=== PATIENT | female | born 1940 | race Caucasian/White ===

== ENCOUNTER 2021-09-04 11:42 | Emergency (ER) | payer MEDICARE, SELFPAY ==
[2021-09-04] VITALS (7 sets, daily range): BP systolic 143–190; BP diastolic 37–70; PULSE 48–57; RESP 16–18; TEMP 36.7–36.9; O2SAT 95–96; BMI 49.6
--- NOTE | ~2021-09-04 | XR_ITS ---
EXAMINATION: XR RIGHT FOOT XR RIGHT ANKLE XR RIGHT KNEE CLINICAL INFORMATION: Pain post fall. COMPARISON: Right knee x-ray October 2018. TECHNIQUE: 4 views of the right knee, 3 views of the right foot and 3 views of the right ankle. FINDINGS: RIGHT KNEE: There is a 3 component right knee replacement. No fracture or dislocation is seen. No x-ray evidence of loosening is seen. There is no joint effusion. RIGHT ANKLE: There is a fracture of the fifth metatarsal bone. No other fracture is seen. The ankle mortise is normal. Soft tissues are normal. RIGHT FOOT: There are fractures of the distal shafts of the third, fourth and fifth metatarsal bones. There is arthritis at the first MTT joint and metatarsal tarsal joints. There is a plantar calcaneal spur. There is soft tissue swelling adjacent to the fractures. XR/XR knee RT 3V IMPRESSION: Right foot: Fractures of the distal shafts of the third, fourth, and fifth metatarsal bones. , Right ankle: No fracture seen. Right knee: Right knee replacement. No fracture or dislocation seen.
--- NOTE | ~2021-09-04 | XR_ITS ---
EXAMINATION: XR RIGHT FOOT XR RIGHT ANKLE XR RIGHT KNEE CLINICAL INFORMATION: Pain post fall. COMPARISON: Right knee x-ray October 2018. TECHNIQUE: 4 views of the right knee, 3 views of the right foot and 3 views of the right ankle. FINDINGS: RIGHT KNEE: There is a 3 component right knee replacement. No fracture or dislocation is seen. No x-ray evidence of loosening is seen. There is no joint effusion. RIGHT ANKLE: There is a fracture of the fifth metatarsal bone. No other fracture is seen. The ankle mortise is normal. Soft tissues are normal. RIGHT FOOT: There are fractures of the distal shafts of the third, fourth and fifth metatarsal bones. There is arthritis at the first MTT joint and metatarsal tarsal joints. There is a plantar calcaneal spur. There is soft tissue swelling adjacent to the fractures. XR/XR foot RT 2V IMPRESSION: Right foot: Fractures of the distal shafts of the third, fourth, and fifth metatarsal bones. , Right ankle: No fracture seen. Right knee: Right knee replacement. No fracture or dislocation seen.
--- NOTE | ~2021-09-04 | XR_ITS ---
EXAMINATION: XR RIGHT FOOT XR RIGHT ANKLE XR RIGHT KNEE CLINICAL INFORMATION: Pain post fall. COMPARISON: Right knee x-ray October 2018. TECHNIQUE: 4 views of the right knee, 3 views of the right foot and 3 views of the right ankle. FINDINGS: RIGHT KNEE: There is a 3 component right knee replacement. No fracture or dislocation is seen. No x-ray evidence of loosening is seen. There is no joint effusion. RIGHT ANKLE: There is a fracture of the fifth metatarsal bone. No other fracture is seen. The ankle mortise is normal. Soft tissues are normal. RIGHT FOOT: There are fractures of the distal shafts of the third, fourth and fifth metatarsal bones. There is arthritis at the first MTT joint and metatarsal tarsal joints. There is a plantar calcaneal spur. There is soft tissue swelling adjacent to the fractures. XR/XR ankle RT 2V IMPRESSION: Right foot: Fractures of the distal shafts of the third, fourth, and fifth metatarsal bones. , Right ankle: No fracture seen. Right knee: Right knee replacement. No fracture or dislocation seen.
--- NOTE | 2021-09-04 11:52 | ED.FALL ---
HPI - Fall General Chief Complaint: Fall <Ashley Ni NP - Last Filed: 09/04/21 17:43> Stated Complaint: R FOOT/ANKLE PAIN,UNABLE TO BEAR WT,KNEE GAVE OUT <Ashley Ni NP - Last Filed: 09/04/21 17:43> Time Seen by Provider: 09/04/21 11:46 <Ashley Ni NP - Last Filed: 09/04/21 17:43> Source: patient <Ashley Ni NP - Last Filed: 09/04/21 17:43> Mode of arrival: EMS <Ashley Ni NP - Last Filed: 09/04/21 17:43> Limitations: no limitations <LIOR Cooley Last Filed: 09/04/21 17:43> History of Present Illness HPI Narrative: 81-year-old female pmhx significant for osteoarthritis, and frequent falls presents to the ED with pain to the right ankle, foot and knee s/p fall that occured about an hour ago. She states she was getting into the shower, and she felt like her right knee gave out on her, which caused her to fall and rolled her ankle. She states that she did not hit her head, did not lose consciousness and she is not having changes in vision. She states when she fell she grabbed the hand rail and lowered herself to the ground. She states that she is having pain that is constant, but she cannot pinpoint just one spot that hurts. She denies preceding dizziness, chest pain, SOB, fevers, chills, nausea, vomiting. She is not on blood thinners. Past surgical history is significant for a complete left knee replacement. <Ashley Ni NP - Last Filed: 09/04/21 17:43> MD complaint: fall <Ashley Ni NP - Last Filed: 09/04/21 17:43> Onset (ago): hour(s) (1) <LIOR Cooley Last Filed: 09/04/21 17:43> Fall from: standing <Ashley Ni NP - Last Filed: 09/04/21 17:43> Fall witnessed: no <Ashley Ni NP - Last Filed: 09/04/21 17:43> Place fall occurred: home <Ashley Ni NP - Last Filed: 09/04/21 17:43> Loss of consciousness: none <Ashley Ni NP - Last Filed: 09/04/21 17:43> Prolonged down time: no <Ashley Ni NP - Last Filed: 09/04/21 17:43> Symptoms prior to fall: none <Ashley Ni NP - Last Filed: 09/04/21 17:43> Context: other (right knee gave out) <Ashley Ni NP - Last Filed: 09/04/21 17:43> Location of injury: other (R. knee, ankle, foot.) <Ashley Ni NP - Last Filed: 09/04/21 17:43> Related Data Home Medications: Home Medications Medication Instructions Recorded Confirmed albuterol sulfate 90 mcg/actuation 2 puff INHALATION Q6H PRN 09/04/21 09/04/21 aerosol inhaler (ProAir HFA) atenolol 50 mg tablet 1 tab PO DAILY 09/04/21 09/04/21 azelastine 137 mcg (0.1 %) nasal 1 spray INTRANASAL BID 09/04/21 09/04/21 spray aerosol budesonide-formoterol HFA 160 2 puff PO BID 09/04/21 09/04/21 mcg-4.5 mcg/actuation aerosol inhaler (Symbicort) cetirizine 10 mg tablet 1 tab PO DAILY 09/04/21 09/04/21 cholecalciferol (vitamin D3) 25 25 mcg PO DAILY 09/04/21 09/04/21 mcg (1,000 unit) capsule (Vitamin D3) fluticasone propionate 50 2 spray INTRANASAL DAILY 09/04/21 09/04/21 mcg/actuation nasal spray,suspension losartan 50 mg tablet 1 tab PO BEDTIME 09/04/21 09/04/21 montelukast 10 mg tablet 1 tab PO DAILY 09/04/21 09/04/21 omeprazole 20 mg capsule,delayed 1 cap PO DAILY@0630 09/04/21 09/04/21 release propafenone 225 mg tablet 1 tab PO TID 09/04/21 09/04/21 simvastatin 40 mg tablet 1 tab PO BEDTIME 09/04/21 09/04/21 <Ashley Ni NP - Last Filed: 09/04/21 17:43> Allergies/Adverse Reactions: Allergies Allergy/AdvReac Type Severity Reaction Status Date / Time atorvastatin [From LIPITOR] AdvReac Severe MUSCLE PAIN Verified 09/04/21 18:57 ibuprofen [From MOTRIN] AdvReac Severe CHEST PAIN Verified 09/04/21 18:57 Motrin Allergy Unknown Chest Pain Uncoded 09/04/21 18:57 <Ashley Ni NP - Last Filed: 09/04/21 17:43> Review of Systems Review of Systems: Yes all other systems are reviewed and are negative <Ashley Ni NP - Last Filed: 09/04/21 17:43> Constitutional: Constitutional: Reports no additional constitutional complaints, Denies body ache(s), Denies chills, Denies fever(s), Denies headache(s) and Denies weakness <Ashley Ni NP - Last Filed: 09/04/21 17:43> Eyes: Eyes: Reports no additional eye complaints and Denies change in vision <Ashley Ni NP - Last Filed: 09/04/21 17:43> ENT: Reports system reviewed and no additional complaints, except as documented, Denies dizziness, Denies headache(s), Denies nasal congestion, Denies nasal discharge and Denies neck pain <Ashley Ni NP - Last Filed: 09/04/21 17:43> Cardiovascular: Cardiovascular: Reports no additional cardiovascular complaints, Denies chest pain, Denies leg edema and Denies dyspnea <Ashley Ni NP - Last Filed: 09/04/21 17:43> Respiratory: Respiratory: Reports no additional respiratory complaints, Denies cough and Denies dyspnea <Ashley Ni NP - Last Filed: 09/04/21 17:43> Gastrointestinal: Gastrointestinal: Reports no additional gastrointestinal complaints, Denies abdominal pain, Denies diarrhea, Denies nausea and Denies vomiting <Ashley Ni NP - Last Filed: 09/04/21 17:43> Genitourinary: Genitourinary: Reports no additional female genitourinary complaints and Denies urinary incontinence <Ashley Ni NP - Last Filed: 09/04/21 17:43> Musculoskeletal: Musculoskeletal: Reports no additional musculoskeletal complaints, Denies back pain, Reports arthralgias (R. ankle, foot, knee), Reports joint swelling (R. ankle ), Denies neck pain, Denies numbness and Denies tingling <Ashley Ni NP - Last Filed: 09/04/21 17:43> Integumentary/Breasts: Skin/Breast: Reports system reviewed and no additional complaints, except as docu and Denies rash <Ashley Ni NP - Last Filed: 09/04/21 17:43> Neurologic: Reports system reviewed and no additional complaints, except as documented, Denies Abnormal speech present, Denies dizziness, Denies headache(s), Denies numbness, Denies tingling and Denies weakness <Ashley Ni NP - Last Filed: 09/04/21 17:43> PMFSH Past Medical History Attestation statement: The following information was validated with the patient. <Ashley Ni NP - Last Filed: 09/04/21 17:43> Source: old records reviewed and nursing notes reviewed <Ashley Ni NP - Last Filed: 09/04/21 17:43> Social History Social History: Social History Alcohol intake: current Alcohol intake frequency: holidays/special occasions only Patient Tobacco Use Status: Never used Tobacco Use of substances other than those prescribed or required for medical reasons: No Advance Directives: Yes Advance Directives Information Provided: Yes Advance Directives on File: No <Ashley Ni NP - Last Filed: 09/04/21 17:43> Physical Exam Vital Signs: Vital Signs: Last Vital Signs Temp 98.2 F 09/05/21 05:36 Pulse 55 09/05/21 05:36 Resp 16 09/05/21 05:36 BP 146/72 H 09/05/21 08:40 Pulse Ox 95 09/05/21 05:36 Body Mass Index 49.6 <Ashley Ni NP - Last Filed: 09/04/21 17:43> Vital Signs: Last Vital Signs Temp 98.2 F 09/05/21 05:36 Pulse 55 09/05/21 05:36 Resp 16 09/05/21 05:36 BP 146/72 H 09/05/21 08:40 Pulse Ox 95 09/05/21 05:36 Body Mass Index 49.6 <ROBBI Phillips - Last Filed: 09/05/21 13:06> Const: General: cooperative, healthy appearing, comfortable and no acute distress <Ashley Ni NP - Last Filed: 09/04/21 17:43> Orientation/consciousness: patient oriented x3 <Ashley Ni NP - Last Filed: 09/04/21 17:43> Limitations: no limitations <Ashley Ni NP - Last Filed: 09/04/21 17:43> HENMT: Head: Yes normal to inspection <Ashley Ni NP - Last Filed: 09/04/21 17:43> Ears: hearing grossly normal bilaterally <Ashley Ni NP - Last Filed: 09/04/21 17:43> General nose exam: Normal external nose present <Ashley Ni NP - Last Filed: 09/04/21 17:43> Face and sinus: Yes normal facial exam <Ashley Ni NP - Last Filed: 09/04/21 17:43> Mouth: Normal oral and palatal mucosa present <Ashley Ni NP - Last Filed: 09/04/21 17:43> Throat: Yes posterior oropharynx normal <Ashley Ni NP - Last Filed: 09/04/21 17:43> Eyes: General: appearance normal, both eyes and all related structures <Ashley Ni NP - Last Filed: 09/04/21 17:43> Pupils: Equal, round and reactive pupils present <Ashley Ni NP - Last Filed: 09/04/21 17:43> Neck: Neck: Yes normal visual inspection <Ashley Ni NP - Last Filed: 09/04/21 17:43> Chest: Chest palpation & inspection: normal inspection of the chest <Ashley Ni NP - Last Filed: 09/04/21 17:43> Resp: Effort & Inspection: normal respiratory effort <Ashley Ni NP - Last Filed: 09/04/21 17:43> Auscultation: clear to auscultation bilaterally <Ashley Ni NP - Last Filed: 09/04/21 17:43> Cardio: Rate: regular rate <Ashley Ni NP - Last Filed: 09/04/21 17:43> Rhythm: regular rhythm <Ashley Ni NP - Last Filed: 09/04/21 17:43> Peripheral pulses: Peripheral pulses 2+ throughout <Ashley Ni NP - Last Filed: 09/04/21 17:43> GI: Inspection: Yes normal to inspection <Ashley Ni NP - Last Filed: 09/04/21 17:43> Palpation (GI): Soft to palpation and nontender <Ashley Ni NP - Last Filed: 09/04/21 17:43> Auscultation: normal bowel sounds <Ashley Ni NP - Last Filed: 09/04/21 17:43> Back/Spine/Pelvis: Thoracic/Lumbar Spine: thoracic and lumbar spine normal to inspection <Ashley Ni NP - Last Filed: 09/04/21 17:43> Skin: Other: Old bruises are noted to the right medial thigh on the left. They appear old, patient states these were from a fall week ago. <Ashley Ni NP - Last Filed: 09/04/21 17:43> General skin exam: no rashes or lesions noted <Ashley Ni NP - Last Filed: 09/04/21 17:43> Neuro: General: patient oriented x3, no focal motor deficits and normal sensation to monofilament <Ashley Ni NP - Last Filed: 09/04/21 17:43> Cranial nerves: Yes Equal, round and reactive pupils present <Ashley Ni NP - Last Filed: 09/04/21 17:43> Cognition (Neuro): normal cognition <Ashley Ni NP - Last Filed: 09/04/21 17:43> Speech: No Abnormal speech present <Ashley Ni NP - Last Filed: 09/04/21 17:43> Gait exam (Neuro): Normal gait present <Ashley Ni NP - Last Filed: 09/04/21 17:43> Motor exam (neuro): 5/5 motor strength present throughout <Ashley Ni NP - Last Filed: 09/04/21 17:43> Extrem: General: No normal to inspection (Swelling noted over the right lateral malleolus), Yes full ROM (Painful), Yes capillary refill normal, No no joint enlargement, Yes no pedal edema, Yes no calf tenderness, No cyanosis and Yes edema (Two right ankle) <Ashley Ni NP - Last Filed: 09/04/21 17:43> Right upper extremity: normal to inspection <Ashley Ni NP - Last Filed: 09/04/21 17:43> Left upper extremity: normal to inspection <Ashley Ni NP - Last Filed: 09/04/21 17:43> Course Course Course Narrative: 81 F pmhx significant for osteoarthrits, and frequent falls presents to the ED with 1 hour of right ankle, foot and knee pain s/p fall secondary to her right knee giving out. She states her knee frequently gives out causing her to fall. She lowered herself to the ground. Did not hit her head no LOC, no vision changes. She is not on blood thinners. Spoke to family and patient about possible short term rehab, offered a case management/PT consult due to recurrent falls however family and patient declned, they said if they change their minds they will let us know. 1500- X-ray shows Fractures of the distal shafts of the third, fourth, and fifth metatarsal bones Spoke to family member at bedside, daughter who states they now want case management and PT. Orders have been put in a posterior short leg splint has been applied. Patient has good capillary refill, and sensation is intact after applying splint. Patient should try to not bear weight onto right foot, toe tap permitted. She should follow up with ortho in one week. <Ashley Ni NP - Last Filed: 09/04/21 17:43> Reevaluation(s) Reevaluation #1: 1640- At this time patient has been placed in physician observation. Need more time for case management and PT consult due to frequent falls at home. At this time patient is comfortable laying in bed she has a posterior short leg splint on and has good capillary refill and sensation. Vital signs are stable. Will continue to monitor. Pending disposition <Ashley Ni NP - Last Filed: 09/04/21 17:43> Reevaluation #2: 8am - physician observation continued. PT evaluated the patient and recommended short term rehab. Patient has bed offers per case consultant. Hopeful for placement today. VS are stable and her pain is minimal. Awake and alert eating breakfast this morning. only complaint is her chronic low back pain which improves with tylenol. Will continue to monitor while patient is pending. <ROBBI Phillips - Last Filed: 09/05/21 13:06> Reevaluation #3: 1:20 pm - Physician observation discontinued at this time. Patient is to be discharged to [facility] for acute rehab. No need to discharge with opiates as she has not required any while in the ER. Family at the bedside who agrees with plan for discharge to [facility]. Dispo is to short-term rehab. <ROBBI Phillips - Last Filed: 09/05/21 13:06> Procedures Orthopedic Splinting/Casting Injury #1: Side: right <Ashley Ni NP - Last Filed: 09/04/21 17:43> Lower Extremity Injury Location: foot <Ashley Ni NP - Last Filed: 09/04/21 17:43> Lower Extremity Immobilizer: posterior splint <Ashley Ni NP - Last Filed: 09/04/21 17:43> MDM - Fall MDM Narrative Medical decision making narrative: Based on patient's history, and physical exam is CT of the head is not warranted at this time. Patient denies LOC, she is alert and oriented x3, she did not hit her head. Unlikely that this is a bleed. She is also not on blood thinners. An x-ray of the right foot, ankle and knee of been ordered. <Ashley Ni NP - Last Filed: 09/04/21 17:43> Medical Records Attestation: I reviewed the patient's medical records. <Ashley Ni NP - Last Filed: 09/04/21 17:43> Lab Data Attestation: I reviewed the patient's lab results. <Ashley Ni NP - Last Filed: 09/04/21 17:43> Labs: Lab Results 09/04/21 Range/Units 16:39 COVID-19 ([facility]) Negative (Negative) COVID-19 Clin Com See Note <Ashley Ni NP - Last Filed: 09/04/21 17:43> Lab Results 09/04/21 Range/Units 16:39 COVID-19 ([facility]) Negative (Negative) COVID-19 Clin Com See Note <ROBBI Phillips - Last Filed: 09/05/21 13:06> Imaging Data Right ankle/foot/knee: Attestation: I personally reviewed and interpreted this imaging study as follows: <Ashley Ni NP - Last Filed: 09/04/21 17:43> Radiologist's impression: FINDINGS: RIGHT KNEE: There is a 3 component right knee replacement. No fracture or dislocation is seen. No x-ray evidence of loosening is seen. There is no joint effusion. RIGHT ANKLE: There is a fracture of the fifth metatarsal bone. No other fracture is seen. The ankle mortise is normal. Soft tissues are normal. RIGHT FOOT: There are fractures of the distal shafts of the third, fourth and fifth metatarsal bones. There is arthritis at the first MTT joint and metatarsal tarsal joints. There is a plantar calcaneal spur. There is soft tissue swelling adjacent to the fractures. XR/XR ankle RT 2V IMPRESSION: Right foot: Fractures of the distal shafts of the third, fourth, and fifth metatarsal bones. , Right ankle: No fracture seen. ? Right knee: Right knee replacement. No fracture or dislocation seen. <Ashley Ni NP - Last Filed: 09/04/21 17:43> Discharge Plan Discharge Clinical Impression: Foot fracture, right Qualifiers: Encounter type: initial encounter Fracture type: closed Qualified Code(s): S92.901A - Unspecified fracture of right foot, initial encounter for closed fracture <Ashley iN NP - Last Filed: 09/04/21 17:43> Patient Disposition: er [facility] <Ashley Ni NP - Last Filed: 09/04/21 17:43> Prescriptions: No Action losartan 50 mg tablet 1 tab PO BEDTIME RF: 0 cetirizine 10 mg tablet 1 tab PO DAILY RF: 0 simvastatin 40 mg tablet 1 tab PO BEDTIME RF: 0 propafenone 225 mg tablet 1 tab PO TID RF: 0 omeprazole 20 mg capsule,delayed release(DR/EC) 1 cap PO DAILY@0630 RF: 0 azelastine 137 mcg (0.1 %) aerosol,spray 1 spray intranasal BID RF: 0 montelukast 10 mg tablet 1 tab PO DAILY RF: 0 albuterol sulfate [ProAir HFA] 90 mcg/actuation Hfa Aerosol Inhaler 2 puff INHALATION Q6H PRN (Reason: Shortness Of Breath) RF: 0 fluticasone propionate [Flonase] 50 mcg/actuation [place],Suspension 2 spray INTRANASAL DAILY RF: 0 atenolol 50 mg tablet 1 tab PO DAILY RF: 0 cholecalciferol (vitamin D3) [Vitamin D3] 25 mcg (1,000 unit) Capsule 25 mcg PO DAILY RF: 0 budesonide-formoterol [Symbicort] 160-4.5 mcg/actuation HFA aerosol inhaler 2 puff PO BID RF: 0 <Ashley Ni NP - Last Filed: 09/04/21 17:43>
--- NOTE | 2021-09-04 16:50 | PC.NURSE ---
pt helped onto and off of bedpan by this RN. 300 ml of urine.
--- NOTE | 2021-09-04 17:05 | PHA.MEDREC ---
Pharmacy Consult ? Medication Reconciliation Pharmacy has completed the medication reconciliation. Spoke with patient and PHARMACY BILLING ADJUDICATOR in ED.
[2021-09-04 17:18] LABS: COVID-19 Test Negative (Negative)
--- NOTE | 2021-09-04 17:56 | MHC.CM.ED ---
CM met with patient and daughter. Pt has knee pain and fx foot. PT recommends STR. Pt and daughter agreeable. Pt lives with and daughter in a moblie home. Pt uses a walker and has no services. Pt is independent with ADL's. Daughter provides transportation, groceries and meal preparation. HCP/daughter Ping Christine ([phone]). Copy of HCP obtained and uploaded into [employer] and [email or web address]. PCP is Chandrakant Ying. Pt and daughter given [facility] for both acute rehab and local STR. Referrals placed at [facility] for acute rehab and [facility] in [place] and [facility] at pt request. Contact card given. CM to follow for d/c needs.
--- NOTE | 2021-09-04 18:58 | PC.NURSE ---
Pt aaox4, resting on stretcher in NAD, breathing with ease on RA. Pt's VS, BP not obtained, pt refused it at this time. Pt endorses a little bit, about a 5 of pain in R foot. Pt offers no additional complaints. Pt aware and agreeable to plan for PT/CM. Pt stretcher in low locked position, rails raised, call rock within reach. Pt instructed to use call rock before getting out of bed for all needs. Pt expresses understanding. Red fall star sign posted outside of room, pt with red wrist band.
[2021-09-04] MEDS: Losartan Potassium 50 MG TABLET PO (20:52)
[2021-09-04] MEDS: Acetaminophen 325 MG TABLET 650 MG PO (20:52)
[2021-09-04] MEDS: Azelastine HCl Nasal 137 MCG/Spray 30 ML 1 SPRAY NOSTRIL-B (21:27)
--- NOTE | 2021-09-05 01:43 | PC.NURSE ---
Pt assisted off of bedpan, boosted in bed to position of comfort. Bed in low locked position, rails raised, call rock within reach, bed alarm active and audible.
[2021-09-05 05:36] VITALS: BP 146/72; PULSE 55; RESP 16; TEMP 36.8; O2SAT 95
[2021-09-05] MEDS: Omeprazole 20 MG CAPSULE.DR PO (05:40)
--- NOTE | 2021-09-05 07:25 | PC.NURSE ---
report taken from tonya owusu pt here for case mgmt s/p fall, alert, calm and cooperative on first contact, nad. awaiting breakfast. 04/10 headache. wctm for dc needs.
[2021-09-05] MEDS: Acetaminophen 325 MG TABLET 650 MG PO (08:03)
[2021-09-05 08:40] VITALS: BP 146/72
[2021-09-05] MEDS: atenoloL 50 MG TABLET PO (08:40)
[2021-09-05] MEDS: Azelastine HCl Nasal 137 MCG/Spray 30 ML 1 SPRAY NOSTRIL-B (08:40)
[2021-09-05] MEDS: Cholecalciferol (Vitamin D3) 25 MCG TABLET PO (08:40)
[2021-09-05] MEDS: Loratadine 10 MG TABLET PO (08:40)
[2021-09-05] MEDS: Montelukast Sodium 10 MG TABLET PO (08:40)
[2021-09-05] MEDS: Ondansetron ODT 4 MG TAB.RAPDIS TRANSLINGU (11:39)
--- NOTE | 2021-09-05 11:42 | PC.NURSE ---
pt vomiting all of a sudden, given zofran po. will assess for effect.
--- NOTE | 2021-09-05 12:01 | MHC.CM.PN ---
PATIENT TO TRANSFER TO [facility] FOR [facility]. PATIENT, DAUGHTER (IN ROOM), RN, AND UNIT AWARE OF PLAN.
== END 2021-09-05 14:38 | disposition skilled nursing facility (03) ==
PROVIDERS: Nurse Practitioner Family; Emergency Provider Emergency Medicine
DX: S92.901A Unspecified fracture of right foot, initial encounter for closed fracture (principal); M79.671 Pain in right foot; W01.0XXA Fall on same level from slipping, tripping and stumbling without subsequent striking against object, initial encounter; Y93.9 Activity, unspecified; Y92.9 Unspecified place or not applicable; Y99.9 Unspecified external cause status; Z20.822 Contact with and (suspected) exposure to COVID-19; Z79.899 Other long term (current) drug therapy
CPT/HCPCS: 29505; 36415; 73562; 73600; 73620; 87635; 97162; 99285

== ENCOUNTER 2021-09-12 07:09 | Outpatient (REF) | payer MEDICARE, SELFPAY ==
--- NOTE | ~2021-09-12 | XR_ITS ---
EXAMINATION: XR FOOT, RIGHT CLINICAL INFORMATION: Right foot pain. COMPARISON: Most recent right foot radiographs dated 09/04/2021. TECHNIQUE: AP, lateral, and oblique views of the right foot. FINDINGS: Mildly displaced fractures through the 3rd, 4th, and 5th metatarsals in unchanged anatomic alignment. No dislocation. Severe joint space narrowing with bony remodeling and marginal osteophytes at the tarsometatarsal joints. No osseous erosion. Tiny plantar calcaneal spur. XR/XR foot RT min 3V IMPRESSION: Distal 3rd, 4th, and 5th metatarsal fractures in unchanged anatomic alignment.
== END 2021-09-12 07:10 | disposition home or self-care (01) ==
LOC: HO.HOSX 07:09
PROVIDERS: Visit Provider Physician Assistant
DX: S92.331D Displaced fracture of third metatarsal bone, right foot, subsequent encounter for fracture with routine healing (principal); S92.341D Displaced fracture of fourth metatarsal bone, right foot, subsequent encounter for fracture with routine healing; S92.351D Displaced fracture of fifth metatarsal bone, right foot, subsequent encounter for fracture with routine healing
CPT/HCPCS: 73630; 99202

== ENCOUNTER 2021-10-10 07:23 | Outpatient (REF) | payer MEDICARE, SELFPAY ==
--- NOTE | ~2021-10-10 | XR_ITS ---
EXAMINATION: XR FOOT, RIGHT CLINICAL INFORMATION: Pain of right foot COMPARISON: PET 2020 and 09/12/2021 TECHNIQUE: 3 views of the right foot. FINDINGS: Bones appear to be diffusely osteoporotic. Again noted is the extensive osteoarthritis along the tarsometatarsal joints. There is callus formation around the healing fracture of the distal metadiaphysis of the third metatarsal. The third metatarsal head is laterally displaced by approximately 0.3 cm. There is healing of the nondisplaced fracture of the fourth metatarsal neck. Also, there is progressive healing of the mildly displaced fracture of the distal metadiaphysis of the fifth metatarsal. No new fractures. There is a small plantar calcaneal enthesophyte. Mild osteoarthritis noted at the calcaneocuboid joint. XR/XR foot RT min 3V IMPRESSION: * There is progressive healing of metatarsal fractures. * Severe osteoarthritis of the tarsometatarsal joints.
== END 2021-10-10 07:24 | disposition home or self-care (01) ==
LOC: HO.HOSX 07:23
PROVIDERS: Visit Provider Physician Assistant
DX: S92.351A Displaced fracture of fifth metatarsal bone, right foot, initial encounter for closed fracture (principal); S92.341A Displaced fracture of fourth metatarsal bone, right foot, initial encounter for closed fracture; S92.331A Displaced fracture of third metatarsal bone, right foot, initial encounter for closed fracture
CPT/HCPCS: 73630; 99212

== ENCOUNTER 2021-11-07 07:15 | Outpatient (REF) | payer MEDICARE, SELFPAY ==
--- NOTE | ~2021-11-07 | XR_ITS ---
EXAMINATION: XR FOOT, RIGHT CLINICAL INFORMATION: Pain COMPARISON: 10/10/2021 TECHNIQUE: AP, lateral, and oblique views of the right foot. FINDINGS: There are healing fractures of the third, fourth, and fifth metatarsals with bony callus formation present. Fracture line at the third metatarsal fracture is still evident. Degenerative changes at the first metatarsophalangeal joint. Severe degenerative change along the tarsometatarsal joints. Plantar heel spur. XR/XR foot RT min 3V IMPRESSION: Healing fractures of the third, fourth, and fifth metatarsals Advanced degenerative changes along the tarsometatarsal joints.
== END 2021-11-07 07:16 | disposition home or self-care (01) ==
LOC: HO.HOSX 07:15
PROVIDERS: Visit Provider Physician Assistant
DX: S92.331D Displaced fracture of third metatarsal bone, right foot, subsequent encounter for fracture with routine healing (principal); S92.341D Displaced fracture of fourth metatarsal bone, right foot, subsequent encounter for fracture with routine healing; S92.351D Displaced fracture of fifth metatarsal bone, right foot, subsequent encounter for fracture with routine healing
CPT/HCPCS: 73630; 99212

== ENCOUNTER 2023-08-29 11:22 | Emergency (ER) | payer MEDICARE, SELFPAY ==
--- NOTE | ~2023-08-29 | XR_ITS ---
EXAMINATION: XR KNEE, RIGHT CLINICAL INFORMATION: Right knee pain after fall with inability to ambulate COMPARISON: None available. TECHNIQUE: Four views of the right knee. FINDINGS: A knee joint prosthesis is present. Components appear intact. There is an unusually large spacer present between the femoral and tibial components with a gap of about 2.8 cm. A joint effusion is present with some probable intra-articular osseous bodies. No fractures or dislocations. XR/XR knee RT 4V IMPRESSION: 1. No evidence of an acute osseous injury. 2. Intact knee joint prosthetic components. 3. Joint effusion with probable intra-articular osseous bodies.
--- NOTE | ~2023-08-29 | US_ITS ---
EXAMINATION: US VENOUS ULTRASOUND WITH DOPPLER LOWER EXTREMITY, RIGHT CLINICAL INFORMATION: Right lower extremity edema and pain COMPARISON: None available. TECHNIQUE: Ultrasound of the deep veins is performed from the hip to the calf with compression sonography and color and pulse Doppler assessment. Spectral analysis with color-flow imaging is performed. FINDINGS: There is normal venous compression and respiratory variation and augmented flow. The visualized common femoral vein, superficial femoral vein, profunda femoral vein, popliteal vein, and the trifurcation region shows no evidence of deep venous thrombosis. Left common femoral vein appears normal. There is a 4.7 x 1.8 x 2.7 cm Hanson cyst present. If the patient's symptoms persist, followup ultrasound in 5 days 7 days might be of value to exclude proximal propagation from a non-visualized calf vein. US/US venous duplex LE RT IMPRESSION: No DVT demonstrated in the right lower extremity.
[2023-08-29 11:31] VITALS: BP 131/50; PULSE 71; RESP 18; TEMP 36.9; O2SAT 97; BMI 52.8
[2023-08-29 11:42] VITALS: BP 174/91; PULSE 75; O2SAT 96
--- NOTE | 2023-08-29 11:48 | ED_ITS ---
HPI - General Adult General Chief complaint: Extremity Injury, Lower Stated complaint: R KNEE PAIN W/MOVEMENT PER EMS Time Seen by Provider: 08/29/23 11:29 Source: patient and family (daughter) Mode of arrival: EMS Limitations: no limitations History of Present Illness HPI narrative: 83 y o female presenting for evaluation of R leg pain. Patient had a witnessed fall into a chair last week in which she states her walker hit her leg during the fall, has been c/o knee pain since but able to ambulate on it. Has noticed bruising to the lateral aspect of the leg just below and above the knee as well as bruising to the popliteal fossa and along the posterior upper calf. She reports that this morning she is now unable to ambulate or bend the knee, stating it feels frozen with worsening pain, 8/10 with movement and 3/10 pain with rest. No thinners, no hx of DVT. No numbness or tingling. Denies chest pain, shortness of breath, palpitations, dizziness, abdominal pain, nausea, vomiting and diarrhea. Of note, patient states she is sedentary most of the day in a chair. Related Data Home Medications Medication Instructions Recorded Confirmed albuterol sulfate 90 mcg/actuation 2 puff inhalation Q6H PRN 09/04/21 09/04/21 aerosol inhaler (ProAir HFA) Shortness Of Breath atenolol 50 mg tablet 1 tab PO DAILY 09/04/21 09/04/21 azelastine 137 mcg (0.1 %) nasal 1 spray intranasal BID 09/04/21 09/04/21 spray aerosol budesonide-formoterol HFA 160 2 puff PO BID 09/04/21 09/04/21 mcg-4.5 mcg/actuation aerosol inhaler (Symbicort) cetirizine 10 mg tablet 1 tab PO DAILY 09/04/21 09/04/21 cholecalciferol (vitamin D3) 25 25 mcg PO DAILY 09/04/21 09/04/21 mcg (1,000 unit) capsule (Vitamin D3) fluticasone propionate 50 2 spray intranasal DAILY 09/04/21 09/04/21 mcg/actuation nasal spray,suspension losartan 50 mg tablet 1 tab PO BEDTIME 09/04/21 09/04/21 montelukast 10 mg tablet 1 tab PO DAILY 09/04/21 09/04/21 omeprazole 20 mg capsule,delayed 1 cap PO DAILY@0630 09/04/21 09/04/21 release propafenone 225 mg tablet 1 tab PO TID 09/04/21 09/04/21 simvastatin 40 mg tablet 1 tab PO BEDTIME 09/04/21 09/04/21 Allergies Allergy/AdvReac Type Severity Reaction Status Date / Time atorvastatin [From LIPITOR] AdvReac Severe MUSCLE PAIN Verified 11/07/21 11:30 ibuprofen [From MOTRIN] AdvReac Severe CHEST PAIN Verified 11/07/21 11:30 Motrin Allergy Unknown Chest Pain Uncoded 10/10/21 12:57 Review of Systems Review of Systems: Constitutional : No Weight loss, No Fever, No Chills, No Fatigue, No Malaise Cardiovascular : No Chest Pain, No SOB, No Dyspnea on Exertion, No Orthopnea, No Edema, No Palpitations Respiratory : No Cough, No Sputum, No Wheezing Gastrointestinal : No Nausea, No Vomiting, No Diarrhea, No Constipation, No abdominal Pain, No Hematochezia, No Melena Genitourinary : No Dysuria, No Urinary Frequency, No Hematuria Musculoskeletal : + joint pain, No Myalgias, No Joint Swelling Skin : No Skin Lesions, No rash, +bruising to the R leg Neuro : No Weakness, No Numbness, No Dizziness, No Headache Psych : No Anxiety/Panic, No Depression All other systems reviewed and are negative [facility] Past Medical History Surgical History History of total right knee replacement Social History Social History Alcohol intake: never Patient Tobacco Use Status: Never used Tobacco Smoked in Last 30 Days: No Use of substances other than those prescribed or required for medical reasons: No Advance Directives: Yes Advance Directives on File: Yes Advance Directives Date on File: 08/29/23 Current occupational status: retired Current occupation: rt handed Physical Exam ED Vital Signs: Vital Signs - 24 hr 08/29/23 11:31 Temperature 98.5 F Pulse Rate 71 Respiratory Rate 18 Blood Pressure 131/50 L Pulse Oximetry 97 Oxygen Delivery Method Room Air BMI result Body Mass Index 52.8 VSS Appearance: Alert.? Oriented X3.? No acute distress.? Head: Normocephalic, atraumatic, no step-offs or deformities Neck: Normal inspection.? Neck supple.? CVS: Normal heart rate and rhythm.? Pulses normal.? Respiratory: No respiratory distress.? Breath sounds normal.? Abdomen: Soft and nontender.? Skin: Skin warm and dry.? Normal skin color.? Normal skin turgor. +Ecchymosis to the R lateral leg just below and above the knee, also within the popliteal fossa and along the posterior upper calf. Extremities: No lower extremity edema.? 5/5 strength to bilateral upper extremities. LLE with full ROM and 5/5 strength. R hip flexion and knee flexion ROM limited secondary to pain. Full ROM of the ankles b/l. 5/5 dorsiflexion and plantar flexion. 2+ popliteal, DP, PT pulses b/l. Gross sensation in tact. R calf TTP. L calf no TTP Neuro: Oriented X 3.? No motor deficit.? No sensory deficit. CN 2-12 intact Course Reevaluation(s) Reevaluation #1: No DVT in the lower extremity right, patient did have to use the restroom, and had a very hard time ambulating, she was a to assist with a gait belt, was able to stand pivot however patient is usually ambulatory at home with walker. Here she is requiring a wheelchair. Patient and daughter do not feel comfortable with her going home, this will warrant evaluation by physical therapy and case management. X-ray pending however patient to be placed and to physician observation to allow more time to be evaluated by physical therapy and case management. Time observation was started patient common cooperative no acute distress will continue to monitor Time: 13:19 Reevaluation #2: Bodies. X-ray of right knee with joint effusion with intra-articular osseous bodies. Will give her an Adeel wrap. Patient to follow-up outpatient with orthopedics Time: 13:21 Medications Administered Discontinued Medications Generic Name Dose Route Start Last Admin Trade Name Freq PRN Reason Stop Dose Admin Acetaminophen 650 mg 08/29/23 11:52 08/29/23 11:57 Acetaminophen 325 Mg Tablet PO 08/29/23 11:53 650 mg ONCE ONE Administration Medical Decision Making Medical Decision Making MDM Narrative: 83 y o female presenting for evaluation of R knee and calf pain, fall 1 week ago now unable to ambulate on the R leg. PE significant for R hip flexion and knee flexion ROM limited secondary to pain. Full ROM of the ankles b/l. 5/5 dorsiflexion and plantar flexion. 2+ popliteal, DP, PT pulses b/l. Gross sensation in tact. R calf TTP. L calf no TTP. Possible hematoma vs sprain/strain vs dislocation vs fracture vs DVT. No acute threat to limb, neurovascularly in tact. I am not concerned for compartment syndrome, compartments are soft, limb is well perfused. No signs of necrosis. I am not concerned for a PE at this time, patient has no SOB, oxygenating well, lungs CTAB. Plan -- XR, Duplex US Differential Diagnosis Differential Diagnoses: The differential diagnosis associated with the presentation includes Possible hematoma vs sprain/strain vs dislocation vs fracture vs DVT. No acute threat to limb, neurovascularly in tact. I am not concerned for compartment syndrome, compartments are soft, limb is well perfused. No signs of necrosis. I am not concerned for a PE at this time, patient has no SOB, oxygenating well, lungs CTAB. Admission/Observation Consideration of admission/observation: Escalation of care including admission/observation considered Unlikely Independent Interpretation I performed an independent interpretation of an: Plain X-Ray and Ultrasound (US/US venous duplex LE RT IMPRESSION: No DVT demonstrated in the right lower extremity.) Radiology Impression Discussion of test interpretation with radiology: I have reviewed the radiologist's reading. Critical Care Time Critical Care Time Critical Care Time: No Discharge Plan Discharge Clinical Impression: Knee pain, right, Pain of right calf, Effusion of right knee Patient Disposition: Still a Patient Additional Instructions: Take your medications as prescribed. If you were prescribed antibiotics today, it is important that you take your medication to their entirety, do not skip any doses, do not finish them early. Follow-up with your primary care provider this week. Return to the emergency department with new or worsening symptoms. Such as fevers, chills, chest pain, shortness of breath, nausea, vomiting, dizziness, headache, vision changes, lethargy In case of emergency call 911 US/US venous duplex LE RT IMPRESSION: No DVT demonstrated in the right lower extremity. XR/XR knee RT 4V IMPRESSION: 1. No evidence of an acute osseous injury. 2. Intact knee joint prosthetic components. 3. Joint effusion with probable intra-articular osseous bodies. Prescriptions: No Action losartan 50 mg tablet 1 tab PO BEDTIME cetirizine 10 mg tablet 1 tab PO DAILY simvastatin 40 mg tablet 1 tab PO BEDTIME propafenone 225 mg tablet 1 tab PO TID omeprazole 20 mg capsule,delayed release(DR/EC) 1 cap PO DAILY@0630 azelastine 137 mcg (0.1 %) aerosol,spray 1 spray intranasal BID montelukast 10 mg tablet 1 tab PO DAILY albuterol sulfate [ProAir HFA] 90 mcg/actuation Hfa Aerosol Inhaler 2 puff INHALATION Q6H PRN (Reason: Shortness Of Breath) fluticasone propionate [Flonase] 50 mcg/actuation [place],Suspension 2 spray INTRANASAL DAILY atenolol 50 mg tablet 1 tab PO DAILY cholecalciferol (vitamin D3) [Vitamin D3] 25 mcg (1,000 unit) Capsule 25 mcg PO DAILY budesonide-formoterol [Symbicort] 160-4.5 mcg/actuation HFA aerosol inhaler 2 puff PO BID
[2023-08-29] MEDS: Acetaminophen 325 MG TABLET 650 MG PO ×2 (11:57→23:41)
--- NOTE | 2023-08-29 13:56 | PC.NURSE ---
report given to Nena Shirley RN pt to be transferred to ED Overflow 3
--- NOTE | 2023-08-29 13:59 | PC.NURSE ---
transportation contacted for transfer to overflow
[2023-08-29 14:00] VITALS: PULSE 59; RESP 16; TEMP 37; O2SAT 96
[2023-08-29 14:08] LABS: COVID-19 Test Negative (Negative); IDNOW Serial# BCCEAD1C
--- NOTE | 2023-08-29 17:08 | PHA.MEDREC ---
Pharmacy Consult ? Medication Reconciliation Pharmacy has completed the medication reconciliation.PHARMACY HAS REVIEWED MED REC DONE BY NURSING
--- NOTE | 2023-08-29 17:58 | PC.NURSE ---
Pt arrive from ED. Med rec done. Diet order placed. PT eval completed and rec STR.
[2023-08-29 21:04] VITALS: BP 147/71; PULSE 80; RESP 18; TEMP 36.9; O2SAT 97
[2023-08-29] MEDS: Losartan Potassium 50 MG TABLET PO (21:50)
[2023-08-30] MEDS: Omeprazole 20 MG CAPSULE.DR PO (06:28)
--- NOTE | 2023-08-30 07:07 | PC.NURSE ---
Assumed care of patient at this time.
[2023-08-30 08:00] VITALS: BP 162/72; PULSE 66; RESP 18; TEMP 36.3; O2SAT 94
[2023-08-30] MEDS: Furosemide 20 MG TABLET 60 MG PO (08:30)
[2023-08-30] MEDS: Cholecalciferol (Vitamin D3) 25 MCG TABLET PO (08:30)
[2023-08-30] MEDS: Montelukast Sodium 10 MG TABLET PO (08:30)
[2023-08-30] MEDS: atenoloL 25 MG TABLET PO (08:31)
[2023-08-30] MEDS: Loratadine 10 MG TABLET PO (08:31)
[2023-08-30 10:00] VITALS: BP 149/67; PULSE 57; RESP 18; TEMP 36.2; O2SAT 95
[2023-08-30 10:40] LABS: MANUAL DIFF FLAG NO
[2023-08-30 10:41] LABS: Basophils Percent Auto 0.2 % (0-2); Eosinophils Absolute Auto 0.2 X10*3/uL (0.0-0.4); Eosinophils Percent Auto 2.6 % (0-4); Hematocrit 30.7 % (37.0-47.0); Hemoglobin 9.9 g/dl (12.0-16.0); Imm Gran Abs Auto 0.03 X10*3/uL (0.00-0.03); Imm Gran Pct Auto 0.4 % (0.0-0.4); Lymphocytes Absolute Auto 1.8 X10*3/uL (1.2-4.9); Lymphocytes Percent Auto 21.3 % (20-40); Mean Corpuscular HGB Conc 32.2 g/dl (31.0-35.0); Mean Corpuscular Hemoglobin 28.2 pg (27.0-33.0); Mean Corpuscular Volume 87.5 fL (80.0-98.0); Mean Platelet Volume 9.9 fL (9.4-12.3); Monocytes Absolute Auto 0.7 X10*3/uL (0.1-1.2); Monocytes Percent Auto 8.9 % (2-11); Neutrophils Absolute Auto 5.5 x10*3/uL (2.0-8.3); Neutrophils Percent Auto 66.6 % (45-73); Platelet Count 295 X10*3/uL (160-400); Red Blood Count 3.51 X10*6/uL (4.20-5.50); Red Cell Distribution Width 14.3 % (11.0-16.0); White Blood Count 8.2 X10*3/uL (4.8-10.8)
[2023-08-30 11:00] LABS: Alanine Aminotransferase 8 U/L (0-31); Albumin Level 3.5 g/dL (3.5-5.0); Alkaline Phosphatase 79 U/L (39-117); Anion Gap 16 (12-20); Aspartate Amino Transferase 12 U/L (5-31); Bilirubin Total 0.5 mg/dL (0.0-1.0); Blood Urea Nitrogen 9 mg/dL (9-16); Calcium 9.5 mg/dL (8.4-10.2); Carbon Dioxide 26 mmol/L (22-29); Chloride 97 mmol/L (96-108); Creatinine Clr Calc Pharmacy 69.6; Estimated Glomerular Filt Rate > 60; Glucose Random 170 mg/dL (60-115); Potassium 4.2 mmol/L (3.3-5.1); Sodium 135 mmol/L (135-145); Total Protein 6.4 g/dL (6.5-8.0)
--- NOTE | 2023-08-30 12:47 | MHC.CM.ED ---
Received case management consult overnight. Patient came to the Er due to right knee pain. Work up essentially negative except for a knee effusion. Physical therapy eval completed. Short term rehab is recommended. Met with patient in regards to discharge planning. Patient lives with her and daughter, ambulates with a walker and had no services prior to coming to the ER. PCP verified. HCP verified to be on file. Patient received 3 Pfizer vaccines. Patient has not been inpatient in any facility in the past 30 days. Referral made to all 3 acute rehab facilities. No bed offers made at this time. Patient is not interested in privately paying for longterm facility. Patient not interested in VNA. Patient agreeable to returning home. Daughter Ping will transport patient home. Gricelda WANG and Aura CULP aware. Patient's daughter, Ping arrived at patient's bedside and is concerned about patient returning home. Medicare requirements for paying for longterm facility discussed with Ping. Patient is not able to privately pay for a STR. Ping aware patient is not interested in VNA. Ping will purchase a bedside commode for patient. Ping will transport patient home. Continue to monitor for d/c needs.
== END 2023-08-30 12:52 | disposition home or self-care (01) ==
PROVIDERS: Physician Assistant; Physician Assistant Medical; Emergency Provider Emergency Medicine; PCP Internal Medicine
DX: M25.561 Pain in right knee (principal); M79.604 Pain in right leg; M25.461 Effusion, right knee; Z20.822 Contact with and (suspected) exposure to COVID-19; Z79.899 Other long term (current) drug therapy
CPT/HCPCS: 36415; 73564; 80053; 85025; 87635; 93971; 97162; 99284